=== PATIENT | male | born 1945 | race Two or more races ===

== ENCOUNTER 2021-11-07 19:48 | Emergency (ER) | payer OTHER ==
[~2021-11-07] VITALS: Ht 167.6 cm; Wt 86.2 kg
[2021-11-07] MEDS ORDERED: PLAVIX75 MG PO (19:58)
[2021-11-07] MEDS ORDERED: AVAPRO75 MG PO (19:58)
[2021-11-07] MEDS ORDERED: ISOSORBIDE MONO60 MG PO (19:59)
[2021-11-07] MEDS ORDERED: FOSAMAX70 MG PO (19:59)
[2021-11-07] MEDS ORDERED: NOXIFOL-D32500 UNIT PO (19:59)
[2021-11-07] MEDS ORDERED: LIPITOR20 MG PO (19:59)
== END 2021-11-08 00:37 | disposition home or self-care (01) ==
LOC: ER 19:48
DX: S00.83XA Contusion of other part of head, initial encounter (principal); W18.39XA Other fall on same level, initial encounter; Y93.89 Activity, other specified; Y92.098 Other place in other non-institutional residence as the place of occurrence of the external cause; Y99.8 Other external cause status

== ENCOUNTER 2021-11-15 09:04 | Emergency (ER) | payer OTHER ==
[~2021-11-15] VITALS: Ht 167.6 cm; Wt 72.6 kg
[~2021-11-15 09:04] MED LIST: AVAPRO75 MG PO; FOSAMAX70 MG PO; ISOSORBIDE MONO60 MG PO; LIPITOR20 MG PO; NOXIFOL-D32500 UNIT PO; PLAVIX75 MG PO
== END 2021-11-15 17:30 | disposition home or self-care (01) ==
LOC: ER 09:04
DX: S00.83XA Contusion of other part of head, initial encounter (principal); S79.912A Unspecified injury of left hip, initial encounter; W18.30XA Fall on same level, unspecified, initial encounter; Y93.9 Activity, unspecified; Y92.019 Unspecified place in single-family (private) house as the place of occurrence of the external cause; Y99.9 Unspecified external cause status